=== PATIENT | female | born 1945 | race American Indian/Alaskan Native ===

== ENCOUNTER 2019-04-09 12:06 | Emergency (ER) | payer MEDICARE ==
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
[2019-04-09 12:52] LABS: Basophils % (Auto) 0.6 % (0.0-1.8); Eosinophils % (Auto) 0.1 % (0.0-4.3); Hematocrit 37.9 % (30.3-42.9); Hemoglobin 12.8 gm/dl (10.1-14.3); Lymphocytes # (Auto) 1.7 K/mm3 (1.2-5.4); Lymphocytes % (Auto) 23.2 % (13.4-35.0); Mean Corpuscular HGB Conc 34 % (30-34); Mean Corpuscular Volume 88 fl (79-97); Monocytes # (Auto) 0.6 K/mm3 (0.0-0.8); Monocytes % (Auto) 7.8 % (0.0-7.3); Red Blood Count 4.32 M/mm3 (3.65-5.03); Red Cell Distribution Width 14.6 % (13.2-15.2)
[2019-04-09 12:56] LABS: Platelet Count 126 K/mm3 (140-440)
[2019-04-09 13:20] LABS: Albumin 3.8 g/dL (3.9-5); Calcium 9.9 mg/dL (8.4-10.2)
[2019-04-09 13:27] LABS: Free T4 (Free Thyroxine) 1.3 ng/dL (0.76-1.46)
[2019-04-09 14:28] LABS: Bilirubin,Urine NEG (Negative); Blood,Urine SM (Negative); Color,Urine Yellow (Yellow); Hyaline Casts,Urine 1 /LPF; Mucus,Urine FEW /HPF; Urobilinogen,Urine < 2.0 mg/dL (<2.0)
[2019-04-09 14:44] LABS: Amphetamine Screen,Urine PRESUMPTIVE NEGATIVE; Benzodiazepines Screen,Urine PRESUMPTIVE NEGATIVE; Cannabinoid Screen,Urine PRESUMPTIVE NEGATIVE; Cocaine Screen,Urine PRESUMPTIVE NEGATIVE; Methadone Screen,Urine PRESUMPTIVE NEGATIVE; Opiate Screen,Urine PRESUMPTIVE NEGATIVE
[2019-04-09] MEDS ORDERED: APRESOLINE PO ONE (19:18)
[2019-04-09] MEDS ORDERED: APRESOLINE PO SCH (20:00)
[2019-04-09] MEDS ORDERED: CATAPRES PO SCH (20:00)
[2019-04-09 22:00] VITALS: BP 136/78
[2019-04-09] MEDS ORDERED: ARICEPT PO SCH (22:00)
[2019-04-09] MEDS ORDERED: SINGULAIR PO SCH (22:00)
[2019-04-10] MEDS ORDERED: GLUCOTROL PO SCH (08:00)
[2019-04-10] MEDS ORDERED: GLUCOPHAGE PO SCH (08:00)
[2019-04-10] MEDS ORDERED: PROCARDIA XL PO SCH (10:00)
[2019-04-10] MEDS ORDERED: LASIX PO SCH (10:00)
[2019-04-10] MEDS ORDERED: KLOR-CON 8 PO SCH (10:00)
== END 2019-04-09 21:59 ==
LOC: ED 12:06
DX: F23 Brief psychotic disorder (principal); F03.90 Unspecified dementia, unspecified severity, without behavioral disturbance, psychotic disturbance, mood disturbance, and anxiety; I10 Essential (primary) hypertension; E11.9 Type 2 diabetes mellitus without complications; Z79.899 Other long term (current) drug therapy; Z88.8 Allergy status to other drugs, medicaments and biological substances
CPT/HCPCS: 36415; 80053; 80307; 80320; 81001; 82140; 82962; 83735; 84439; 84443; 85025; G0480

== ENCOUNTER 2019-04-09 21:36 | Inpatient (IN) | payer MEDICARE ==
[2019-04-10 00:13] LABS: Basophils # (Auto) 0.1 K/mm3 (0.0-0.1); Basophils % (Auto) 0.8 % (0.0-1.8); Eosinophils # (Auto) 0.1 K/mm3 (0.0-0.4); Eosinophils % (Auto) 1.2 % (0.0-4.3); Hematocrit 40.7 % (30.3-42.9); Hemoglobin 13.3 gm/dl (10.1-14.3); Lymphocytes # (Auto) 2.7 K/mm3 (1.2-5.4); Lymphocytes % (Auto) 39.3 % (13.4-35.0); Mean Corpuscular HGB Conc 33 % (30-34); Mean Corpuscular Volume 89 fl (79-97); Monocytes # (Auto) 0.4 K/mm3 (0.0-0.8); Monocytes % (Auto) 6.6 % (0.0-7.3); Red Blood Count 4.57 M/mm3 (3.65-5.03); Red Cell Distribution Width 14.7 % (13.2-15.2)
[2019-04-10] MEDS: ARICEPT PO SCH ×2 (00:16→21:01)
[2019-04-10 00:22] LABS: Platelet Count 122 K/mm3 (140-440)
[2019-04-10 01:08] LABS: BUN/Creatinine Ratio 17; Blood Urea Nitrogen 17 mg/dL (7-17); Calcium 9.7 mg/dL (8.4-10.2); Hemolysis Index 2
[2019-04-10 01:38] LABS: Alanine Aminotransferase 21 units/L (7-56); Albumin 3.7 g/dL (3.9-5)
[2019-04-10] MEDS: APRESOLINE PO SCH ×3 (05:47→21:02)
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
[2019-04-10] MEDS ORDERED: CATAPRES PO SCH (08:00)
[2019-04-10] MEDS ORDERED: NON-FORMULARY (Hydralazine Hcl [Hydralazine Hcl] 50 MG) PO SCH (08:00)
[2019-04-10] MEDS: GLUCOPHAGE PO SCH ×2 (08:56→17:28)
[2019-04-10] MEDS: CATAPRES PO SCH ×3 (08:58→21:01)
[2019-04-10] MEDS: GLUCOTROL PO SCH (08:59)
[2019-04-10] MEDS: KLOR-CON 8 PO SCH (09:00)
[2019-04-10] MEDS: PROCARDIA XL PO SCH (09:00)
[2019-04-10] MEDS: LASIX PO SCH (09:00)
[2019-04-10] MEDS ORDERED: NON-FORMULARY (Metformin Hcl [Metformin] 1,000 MG) PO SCH (10:00)
[2019-04-10] MEDS ORDERED: PROCARDIA XL PO SCH (10:00)
[2019-04-10] MEDS ORDERED: LASIX PO SCH (10:00)
[2019-04-10] MEDS ORDERED: KLOR-CON 8 PO SCH (10:00)
[2019-04-10] MEDS ORDERED: GLUCOTROL PO SCH (10:00)
[2019-04-10 10:51] LABS: Chol/HDL Ratio 3.2 %
--- NOTE | 2019-04-10 11:20 | Consultation ---
History of Present Illness - Reason for Consult Consult date: 04/10/19 medical Mx/clearance - History of Present Illness The patient is a 73-year-old retired [employer] with history of dementia, diabetes and hypertension who presented with history of memory decline, paranoia and aggression towards her . Patient is alert, calm and very pleasant during the encounter. She reports good mood, sleep and appetite. She denies AVH/Paranoia/SI/HI. Hospitalist service consulted for further evaluation and management. Past History Past Medical History: diabetes, hypertension Past Surgical History: Other (unable to recall) Social history: (lives with . Finished high school, retired, no childhood abuse, no legal problems and no access to guns) Family history: hypertension Medications and Allergies Allergies Allergy/AdvReac Type Severity Reaction Status Date / Time KARYNA Inhibitors Allergy Unknown Verified 04/09/19 19:31 Home Medications Medication Instructions Recorded Confirmed Last Taken Type Donepezil [Aricept] 5 mg PO QHS 04/09/19 04/10/19 04/09/19 21:58 History Donepezil [Aricept] 5 mg PO QHS 04/09/19 04/10/19 04/09/19 21:58 History Furosemide [Lasix TAB] 20 mg PO DAILY 04/09/19 04/10/19 04/08/19 History Hydralazine HCl 50 mg PO TID 04/09/19 04/10/19 04/09/19 19:31 History 50 Metformin HCl [metFORMIN] 1,000 mg PO BID 04/09/19 04/10/19 1 Day Ago History ~04/08/19 Montelukast Sodium 10 mg PO QPM 04/09/19 04/10/19 04/09/19 21:58 History 10 NIFEdipine [Nifedipine ER] 60 mg PO DAILY 04/09/19 04/10/19 1 Day Ago History ~04/08/19 Potassium Chloride [Klor-Con 8] 8 meq PO DAILY 04/09/19 04/10/19 04/08/19 History cloNIDine [Catapres] 0.2 mg PO TID 04/09/19 04/10/19 04/09/19 19:32 History 0.2 glipiZIDE [Glucotrol] 10 mg PO DAILY 07/27/19 07/28/19 07/26/19 History Active Meds: Active Medications Clonidine HCl (Catapres) 0.2 mg PO TID [facility] Last Admin: 04/10/19 08:58 Dose: 0.2 mg Documented by: Donepezil HCl (Aricept) 5 mg PO QHS [facility] Last Admin: 04/10/19 00:16 Dose: Not Given Documented by: Donepezil HCl (Aricept) 5 mg PO QHS [facility] Furosemide (Lasix) 20 mg PO QDAY [facility] Last Admin: 04/10/19 09:00 Dose: 20 mg Documented by: Glipizide (Glucotrol) 10 mg PO QDDIAB [facility] Last Admin: 04/10/19 08:59 Dose: 10 mg Documented by: Hydralazine HCl (Apresoline) 50 mg PO Q8HR [facility] Last Admin: 04/10/19 05:47 Dose: 50 mg Documented by: Metformin HCl (Glucophage) 1,000 mg PO BIDDIAB [facility] Last Admin: 04/10/19 08:56 Dose: 1,000 mg Documented by: Montelukast Sodium (Singulair) 10 mg PO QPM [facility] Nifedipine (Procardia Xl) 60 mg PO QDAY [facility] Last Admin: 04/10/19 09:00 Dose: 60 mg Documented by: Olanzapine (Zyprexa) 5 mg PO Q6H PRN PRN Reason: Agitation Potassium Chloride (Klor-Con 8) 8 meq PO QDAY [facility] Last Admin: 04/10/19 09:00 Dose: 8 meq Documented by: Review of Systems Constitutional: no weight loss, no fever Ears, nose, mouth and throat: no ear discharge, no decreased hearing, no sinus pressure, no bleeding gums Breasts: deferred Cardiovascular: no chest pain, no orthopnea Respiratory: no shortness of breath Gastrointestinal: no abdominal pain, no nausea, no vomiting Musculoskeletal: no neck stiffness, no neck pain Integumentary: no rash Neurological: no paralysis, no weakness Psychiatric: paranoia, no suicidal ideation Endocrine: no cold intolerance, no heat intolerance Hematologic/Lymphatic: no easy bruising, no easy bleeding Allergic/Immunologic: no urticaria Exam - Constitutional Vitals: Temp Pulse Resp BP Pulse Ox 97.3 F L 87 19 141/88 97 04/10/19 08:13 04/10/19 08:58 04/10/19 08:13 04/10/19 08:58 04/10/19 08:13 General appearance: Present: no acute distress, well-nourished - EENT Eyes: Present: PERRL ENT: hearing intact, clear oral mucosa - Neck Neck: Present: supple, normal ROM - Respiratory Respiratory effort: normal Respiratory: bilateral: CTA - Cardiovascular Heart Sounds: Present: S1 & S2. Absent: rub, click - Extremities Extremities: pulses symmetrical, No edema Peripheral Pulses: within normal limits - Abdominal General gastrointestinal: Present: soft, non-tender, non-distended, normal bowel sounds - Integumentary Integumentary: Present: clear, warm, dry - Musculoskeletal Musculoskeletal: gait normal, strength equal bilaterally - Psychiatric Psychiatric: appropriate mood/affect - Neurologic Neurologic: CNII-XII intact, moves all extremities Results - Labs CBC & Chem 7: 04/09/19 23:50 04/09/19 23:50 Labs: Abnormal lab results 04/09/19 04/09/19 04/09/19 Range/Units 23:50 23:50 23:50 Plt Count 122 L (140-440) K/mm3 Lymph % (Auto) 39.3 H (13.4-35.0) % Potassium 3.4 L (3.6-5.0) mmol/L Hemoglobin A1c 6.2 H (4-6) % Albumin 3.7 L (3.9-5) g/dL Cholesterol (50-199) mg/dL LDL Cholesterol Direct (50-130) mg/dL HDL Cholesterol (40-59) mg/dL 04/10/19 Range/Units 09:36 Plt Count (140-440) K/mm3 Lymph % (Auto) (13.4-35.0) % Potassium (3.6-5.0) mmol/L Hemoglobin A1c (4-6) % Albumin (3.9-5) g/dL Cholesterol 218 H (50-199) mg/dL LDL Cholesterol Direct 141 H (50-130) mg/dL HDL Cholesterol 68 H (40-59) mg/dL Assessment and Plan Acute psychosis Schizoaffective disorder - Mx per primary HTN, HLD DM type 2 - resume home meds, monitor BP, monitor BG with daily accucheck - Call us back with any question or concern
[2019-04-10] MEDS: SINGULAIR PO SCH (17:28)
[2019-04-10] MEDS ORDERED: SINGULAIR PO SCH (18:00)
[2019-04-10 18:55] LABS: Bacteria,Urine 2+ /HPF (Negative); Bilirubin,Urine NEG (Negative); Blood,Urine NEG (Negative); Color,Urine Amber (Yellow); Mucus,Urine FEW /HPF; Protein,Urine <15 mg/dL mg/dL (Negative); Urobilinogen,Urine < 2.0 mg/dL (<2.0)
[2019-04-10] MEDS ORDERED: ARICEPT PO SCH (22:00)
[2019-04-11] MEDS: APRESOLINE PO SCH ×3 (05:36→23:11)
--- NOTE | 2019-04-11 08:54 | Progress Note ---
Subjective Date of service: 04/11/19 Principal diagnosis: Major Neurocognitive disorder with behavioral disturbance Subjective Comment: Patient is doing good. She has no complaints. She sleeps and eats well. She is pleasantly confused at times. No SI/HI/AVH. Objective - Criteria for Continued Treatment Criteria for Continued Treatment: Improving Level of Functioning, Stablizing Level of Functioning, Improving Emotional/Socia - Mental Status Mental Status: Alert - Objective Observation Participation Level: Full Assessment and Plan - Patient Problems (1) Major neurocognitive disorder due to Alzheimer's disease, with behavioral disturbance Current Visit: Yes Status: Acute Plan to address problem: Patient will be admitted for inpatient psychiatric evaluation, medication adjustment and close monitoring The patient's behavior, mood, sleep and appetite will be closely monitored. Patient will be enrolled in individual and group therapeutic sessions and encouraged to attend. Patient will be provided with a safe and structured environment. Patient's physical health needs will be addressed by the Hospitalist. Social Assessment will be completed and the Buncher Machine will work with patient and family to ensure a suitable and safe disposition Medication adjustment will be made as clinically indicated. The patient agreed on the treatment plan, understood the risk, benefit, alternative treatment, potential consequence of no treatment, and gave informed consent.
[2019-04-11] MEDS: GLUCOTROL PO SCH (10:43)
[2019-04-11] MEDS: LASIX PO SCH (10:44)
[2019-04-11] MEDS: KLOR-CON 8 PO SCH (10:44)
[2019-04-11] MEDS: GLUCOPHAGE PO SCH ×3 (10:44→17:00)
[2019-04-11] MEDS: CATAPRES PO SCH ×3 (10:45→20:32)
[2019-04-11] MEDS: PROCARDIA XL PO SCH (10:46)
[2019-04-11] MEDS: SINGULAIR PO SCH (18:47)
[2019-04-11] MEDS: ARICEPT PO SCH (21:41)
[2019-04-12] MEDS: APRESOLINE PO SCH ×3 (06:01→21:47)
--- NOTE | 2019-04-12 08:34 | Progress Note ---
Subjective Date of service: 04/12/19 Principal diagnosis: Major Neurocognitive disorder with behavioral disturbance Subjective Comment: Patient is doing good. She has no complaints. She sleeps and eats well. She is pleasantly confused at times. She knows the year but not the month or date. No SI/HI/AVH. Will discharge in am tomorrow if she continues to do well. Objective - Criteria for Continued Treatment Criteria for Continued Treatment: Stablizing Level of Functioning - Mental Status Mental Status: Alert - Objective Observation Participation Level: Full Assessment and Plan - Patient Problems (1) Major neurocognitive disorder due to Alzheimer's disease, with behavioral disturbance Current Visit: Yes Status: Acute Plan to address problem: Patient will be admitted for inpatient psychiatric evaluation, medication adjustment and close monitoring The patient's behavior, mood, sleep and appetite will be closely monitored. Patient will be enrolled in individual and group therapeutic sessions and encouraged to attend. Patient will be provided with a safe and structured environment. Patient's physical health needs will be addressed by the Hospitalist. Social Assessment will be completed and the Assistant Executive Housekeeper will work with patient and family to ensure a suitable and safe disposition Medication adjustment will be made as clinically indicated. Will increase Donepezil and start Nameda for dementia The patient agreed on the treatment plan, understood the risk, benefit, alternative treatment, potential consequence of no treatment, and gave informed consent.
[2019-04-12] MEDS: LASIX PO SCH (10:09)
[2019-04-12] MEDS: GLUCOTROL PO SCH (10:10)
[2019-04-12] MEDS: KLOR-CON 8 PO SCH (10:10)
[2019-04-12] MEDS: GLUCOPHAGE PO SCH ×2 (10:10→17:51)
[2019-04-12] MEDS: PROCARDIA XL PO SCH (10:11)
[2019-04-12] MEDS: NAMENDA PO SCH ×2 (10:12→21:47)
[2019-04-12] MEDS: CATAPRES PO SCH ×3 (10:12→21:48)
[2019-04-12] MEDS: SINGULAIR PO SCH (17:51)
[2019-04-12] MEDS: ARICEPT PO SCH (21:48)
[2019-04-13] MEDS: APRESOLINE PO SCH (06:00)
[2019-04-13] MEDS: GLUCOTROL PO SCH (08:26)
[2019-04-13] MEDS: GLUCOPHAGE PO SCH ×2 (08:27→17:00)
--- NOTE | 2019-04-13 08:57 | Progress Note ---
Subjective Date of service: 04/13/19 Principal diagnosis: Major Neurocognitive disorder with behavioral disturbance Subjective Comment: Patient is delusional, accusing step-daughter of stealing her collection of coins, still very upset about this. Spoke with , who indicates that he has repeatedly showed her the collection of coins. She sleeps and eats well. She is confused. She knows the year but not the month or date. No SI/HI/AVH. Will start Risperidone for delusions and monitor closely. Objective - Criteria for Continued Treatment Criteria for Continued Treatment: Improving Level of Functioning, Stablizing Level of Functioning, Improving Emotional/Socia - Mental Status Mental Status: Alert - Objective Observation Participation Level: Full Assessment and Plan - Patient Problems (1) Major neurocognitive disorder due to Alzheimer's disease, with behavioral disturbance Current Visit: Yes Status: Acute Plan to address problem: Patient will be admitted for inpatient psychiatric evaluation, medication adjustment and close monitoring The patient's behavior, mood, sleep and appetite will be closely monitored. Patient will be enrolled in individual and group therapeutic sessions and encouraged to attend. Patient will be provided with a safe and structured environment. Patient's physical health needs will be addressed by the Hospitalist. Social Assessment will be completed and the Repairer Helper will work with patient and family to ensure a suitable and safe disposition Medication adjustment will be made as clinically indicated. Will continue Donepezil and start Nameda for dementia Will start Risperidone 0.5mg bid The patient agreed on the treatment plan, understood the risk, benefit, alternative treatment, potential consequence of no treatment, and gave informed consent.
[2019-04-13] MEDS: CATAPRES PO SCH ×3 (09:00→20:14)
[2019-04-13] MEDS: RisperDAL PO SCH ×2 (09:54→21:10)
[2019-04-13] MEDS: NAMENDA PO SCH ×2 (09:54→21:10)
[2019-04-13] MEDS: LASIX PO SCH (09:55)
[2019-04-13] MEDS: PROCARDIA XL PO SCH (09:56)
[2019-04-13] MEDS: KLOR-CON 8 PO SCH (09:56)
--- NOTE | 2019-04-13 10:15 | Progress Note ---
Assessment and Plan Assessment and plan: The patient is a 73-year-old retired [employer] with history of dementia, diabetes and hypertension who presented with history of memory decline, paranoia and aggression towards her . Patient is alert, calm and very pleasant during the encounter. She reports good mood, sleep and appetite. She denies AVH/ Paranoia/SI/HI. Hospitalist service consulted for further evaluation and management. Schizoaffective disorder: per Haley-psych Hypotension with history of Hypertension: stop hydralazine, continue lasix, procardia Hypoglycemia and DM type 2: d/c glipizide, add accucheck and sliding scale HLD History Interval history: I was asked to re-evaluate Ms. Mary by Cyndi, Hospitalist Scientific Programmer Analyst, reason unclear but patient had borderline low bp and low BG yesterday. Hospitalist Physical - Constitutional Vitals: Temp Pulse Resp BP Pulse Ox 97.6 F 89 18 140/73 98 04/12/19 19:30 04/13/19 09:00 04/12/19 19:30 04/13/19 09:00 04/12/19 19:31 General appearance: Present: no acute distress, well-nourished - EENT ENT: hearing intact - Neck Neck: Present: supple - Respiratory Respiratory effort: normal Respiratory: bilateral: CTA - Cardiovascular Rhythm: regular Heart Sounds: Present: S1 & S2 Results - Labs CBC & Chem 7: 04/09/19 23:50 04/09/19 23:50 Labs: Laboratory Last Values WBC 6.8 K/mm3 (4.5-11.0) 04/09/19 23:50 RBC 4.57 M/mm3 (3.65-5.03) 04/09/19 23:50 Hgb 13.3 gm/dl (10.1-14.3) 04/09/19 23:50 Hct 40.7 % (30.3-42.9) 04/09/19 23:50 MCV 89 fl (79-97) 04/09/19 23:50 MCH 29 pg (28-32) 04/09/19 23:50 MCHC 33 % (30-34) 04/09/19 23:50 RDW 14.7 % (13.2-15.2) 04/09/19 23:50 Plt Count 122 K/mm3 (140-440) L 04/09/19 23:50 Lymph % (Auto) 39.3 % (13.4-35.0) H 04/09/19 23:50 [place] % (Auto) 6.6 % (0.0-7.3) 04/09/19 23:50 Eos % (Auto) 1.2 % (0.0-4.3) 04/09/19 23:50 Baso % (Auto) 0.8 % (0.0-1.8) 04/09/19 23:50 Lymph # 2.7 K/mm3 (1.2-5.4) 04/09/19 23:50 [place] # 0.4 K/mm3 (0.0-0.8) 04/09/19 23:50 Eos # 0.1 K/mm3 (0.0-0.4) 04/09/19 23:50 Baso # 0.1 K/mm3 (0.0-0.1) 04/09/19 23:50 Seg Neutrophils % 52.1 % (40.0-70.0) 04/09/19 23:50 Seg Neutrophils # 3.6 K/mm3 (1.8-7.7) 04/09/19 23:50 Sodium 141 mmol/L (137-145) 04/09/19 23:50 Potassium 3.4 mmol/L (3.6-5.0) L 04/09/19 23:50 Chloride 100.1 mmol/L (98-107) 04/09/19 23:50 Carbon Dioxide 29 mmol/L (22-30) 04/09/19 23:50 15 mmol/L 04/09/19 23:50 BUN 17 mg/dL (7-17) 04/09/19 23:50 1.0 mg/dL (0.7-1.2) 04/09/19 23:50 Estimated GFR > 60 ml/min 04/09/19 23:50 17 % 04/09/19 23:50 Glucose 87 mg/dL (65-100) 04/09/19 23:50 POC Glucose 177 (70-105) H 04/13/19 08:40 6.2 % (4-6) H 04/09/19 23:50 Calcium 9.7 mg/dL (8.4-10.2) 04/09/19 23:50 0.60 mg/dL (0.1-1.2) 04/09/19 23:50 AST 35 units/L (5-40) 04/09/19 23:50 ALT 21 units/L (7-56) 04/09/19 23:50 99 units/L (35-129) 04/09/19 23:50 7.9 g/dL (6.3-8.2) 04/09/19 23:50 3.7 g/dL (3.9-5) L 04/09/19 23:50 0.9 % 04/09/19 23:50 Triglycerides 72 mg/dL (2-149) 04/10/19 09:36 Cholesterol 218 mg/dL (50-199) H 04/10/19 09:36 141 mg/dL (50-130) H 04/10/19 09:36 68 mg/dL (40-59) H 04/10/19 09:36 3.20 % 04/10/19 09:36 TSH 3.260 mlU/mL (0.270-4.200) 04/09/19 23:50 Jeni (Yellow) 04/10/19 18:40 Cloudy (Clear) 04/10/19 18:40 5.0 (5.0-7.0) 04/10/19 18:40 Ur Specific Calcium 1.016 (1.003-1.030) 04/10/19 18:40 <15 mg/dl mg/dL (Negative) 04/10/19 18:40 Neg mg/dL (Negative) 04/10/19 18:40 Tr mg/dL (Negative) 04/10/19 18:40 Neg (Negative) 04/10/19 18:40 Neg (Negative) 04/10/19 18:40 Neg (Negative) 04/10/19 18:40 < 2.0 mg/dL (<2.0) 04/10/19 18:40 Ur Leukocyte Esterase Sm (Negative) 04/10/19 18:40 8.0 /HPF (0.0-6.0) H 04/10/19 18:40 5.0 /HPF (0.0-6.0) 04/10/19 18:40 U Epithel Cells (Auto) 29.0 /HPF (0-13.0) H 04/10/19 18:40 2+ /HPF (Negative) 04/10/19 18:40 Few /HPF 04/10/19 18:40 Active Medications - Current Medications Current Medications: Generic Name Dose Route Start Last Admin Trade Name Marco A PRN Reason Stop Dose Admin Clonidine HCl 0.2 mg 04/10/19 08:00 04/13/19 09:00 Catapres PO 0.2 mg TID NEAL Administration Donepezil HCl 10 mg 04/11/19 22:00 04/12/19 21:48 Aricept PO 10 mg QHS NEAL Administration Furosemide 20 mg 04/10/19 10:00 04/13/19 09:55 Lasix PO 20 mg QDAY NEAL Administration Hydralazine HCl 50 mg 04/10/19 06:00 04/13/19 06:00 Apresoline PO 50 mg Q8HR NEAL Administration Memantine 10 mg 04/12/19 10:00 04/13/19 09:54 Namenda PO 10 mg Q12HR [facility]AL Administration Metformin HCl 500 mg 04/11/19 09:00 04/13/19 08:27 Glucophage PO 500 mg BIDDIAB NEAL Administration Montelukast Sodium 10 mg 04/10/19 18:00 04/12/19 17:51 Singulair PO 10 mg QPM [facility]AL Administration Nifedipine 60 mg 04/10/19 10:00 04/13/19 09:56 Procardia Xl PO 60 mg QDAY [facility]AL Administration Potassium Chloride 8 meq 04/10/19 10:00 04/13/19 09:56 Klor-Con 8 PO 8 meq QDAY [facility]AL Administration Risperidone 0.5 mg 04/13/19 10:00 04/13/19 09:54 Risperdal PO 0.5 mg BID NELA Administration
[2019-04-13] MEDS ORDERED: D50W (25GM) Syringe IV PRN (11:00)
[2019-04-13] MEDS: HumaLOG SUB-Q SCH ×2 (12:33→17:34)
[2019-04-13] MEDS: SINGULAIR PO SCH (18:44)
[2019-04-13] MEDS: ARICEPT PO SCH (21:10)
[2019-04-14] MEDS: CATAPRES PO SCH ×3 (08:39→21:39)
[2019-04-14] MEDS: GLUCOPHAGE PO SCH ×2 (08:40→17:38)
[2019-04-14] MEDS: HumaLOG SUB-Q SCH ×2 (08:42→16:33)
[2019-04-14] MEDS: LASIX PO SCH (09:13)
[2019-04-14] MEDS: RisperDAL PO SCH ×2 (09:17→21:40)
[2019-04-14] MEDS: NAMENDA PO SCH ×2 (09:17→21:40)
[2019-04-14] MEDS: PROCARDIA XL PO SCH (09:18)
[2019-04-14] MEDS: KLOR-CON 8 PO SCH (09:18)
--- NOTE | 2019-04-14 09:26 | Progress Note ---
Subjective Date of service: 04/14/19 Principal diagnosis: Major Neurocognitive disorder with behavioral disturbance Subjective Comment: Patient is calm and pleasantly confused No SI/HI/AVH. She tolerated the Risperidone that was started yesterday. Objective - Criteria for Continued Treatment Criteria for Continued Treatment: Improving Level of Functioning, Stablizing Level of Functioning, Improving Emotional/Socia - Mental Status Mental Status: Alert - Objective Observation Participation Level: Full Assessment and Plan - Patient Problems (1) Major neurocognitive disorder due to Alzheimer's disease, with behavioral disturbance Current Visit: Yes Status: Acute Plan to address problem: Patient will be admitted for inpatient psychiatric evaluation, medication adjustment and close monitoring The patient's behavior, mood, sleep and appetite will be closely monitored. Patient will be enrolled in individual and group therapeutic sessions and encouraged to attend. Patient will be provided with a safe and structured environment. Patient's physical health needs will be addressed by the Hospitalist. Social Assessment will be completed and the Armature Rewinder will work with patient and family to ensure a suitable and safe disposition Medication adjustment will be made as clinically indicated. Will continue Donepezil and Nameda for dementia Will continue Risperidone 0.5mg bid Will plan to discharge her in am tomorrow The patient agreed on the treatment plan, understood the risk, benefit, alternative treatment, potential consequence of no treatment, and gave informed consent.
[2019-04-14] MEDS: SINGULAIR PO SCH (17:38)
[2019-04-14] MEDS: ARICEPT PO SCH (21:39)
[2019-04-15] MEDS: HumaLOG SUB-Q SCH (07:58)
--- NOTE | 2019-04-15 09:29 | Discharge Summary ---
Providers - Providers Date of Admission: 04/09/19 22:05 Date of discharge: 04/15/19 Attending physician: KRISTEN HARTMANN MD 04/09/19 22:05 Consult to Physician [CONS] Routine Comment: Consulting Provider: JUVENAL LUO Physician Instructions: Reason For Exam: Medical/History and Physical Primary care physician: EMA CHOW Hospitalization Reason for admission: memory decline, paranoia and aggression towards her . Allergies/Adverse Reactions: Allergies KARYNA Inhibitors Allergy (Verified 04/09/19 19:31) Unknown Vital Signs: Last Vital Signs Temp 98.3 F 04/14/19 19:24 Pulse 67 04/14/19 21:39 Resp 16 04/14/19 19:24 BP 138/80 04/14/19 21:39 Pulse Ox 100 04/14/19 19:24 Last Lab: Laboratory Last Values WBC 6.8 K/mm3 (4.5-11.0) 04/09/19 23:50 RBC 4.57 M/mm3 (3.65-5.03) 04/09/19 23:50 Hgb 13.3 gm/dl (10.1-14.3) 04/09/19 23:50 Hct 40.7 % (30.3-42.9) 04/09/19 23:50 MCV 89 fl (79-97) 04/09/19 23:50 MCH 29 pg (28-32) 04/09/19 23:50 MCHC 33 % (30-34) 04/09/19 23:50 RDW 14.7 % (13.2-15.2) 04/09/19 23:50 Plt Count 122 K/mm3 (140-440) L 04/09/19 23:50 Lymph % (Auto) 39.3 % (13.4-35.0) H 04/09/19 23:50 [place] % (Auto) 6.6 % (0.0-7.3) 04/09/19 23:50 Eos % (Auto) 1.2 % (0.0-4.3) 04/09/19 23:50 Baso % (Auto) 0.8 % (0.0-1.8) 04/09/19 23:50 Lymph # 2.7 K/mm3 (1.2-5.4) 04/09/19 23:50 [place] # 0.4 K/mm3 (0.0-0.8) 04/09/19 23:50 Eos # 0.1 K/mm3 (0.0-0.4) 04/09/19 23:50 Baso # 0.1 K/mm3 (0.0-0.1) 04/09/19 23:50 Seg Neutrophils % 52.1 % (40.0-70.0) 04/09/19 23:50 Seg Neutrophils # 3.6 K/mm3 (1.8-7.7) 04/09/19 23:50 Sodium 141 mmol/L (137-145) 04/09/19 23:50 Potassium 3.4 mmol/L (3.6-5.0) L 04/09/19 23:50 Chloride 100.1 mmol/L (98-107) 04/09/19 23:50 Carbon Dioxide 29 mmol/L (22-30) 04/09/19 23:50 15 mmol/L 04/09/19 23:50 BUN 17 mg/dL (7-17) 04/09/19 23:50 1.0 mg/dL (0.7-1.2) 04/09/19 23:50 Estimated GFR > 60 ml/min 04/09/19 23:50 17 % 04/09/19 23:50 Glucose 87 mg/dL (65-100) 04/09/19 23:50 POC Glucose 103 (70-105) 04/15/19 08:05 6.2 % (4-6) H 04/09/19 23:50 Calcium 9.7 mg/dL (8.4-10.2) 04/09/19 23:50 0.60 mg/dL (0.1-1.2) 04/09/19 23:50 AST 35 units/L (5-40) 04/09/19 23:50 ALT 21 units/L (7-56) 04/09/19 23:50 99 units/L (35-129) 04/09/19 23:50 7.9 g/dL (6.3-8.2) 04/09/19 23:50 3.7 g/dL (3.9-5) L 04/09/19 23:50 0.9 % 04/09/19 23:50 Triglycerides 72 mg/dL (2-149) 04/10/19 09:36 Cholesterol 218 mg/dL (50-199) H 04/10/19 09:36 141 mg/dL (50-130) H 04/10/19 09:36 68 mg/dL (40-59) H 04/10/19 09:36 3.20 % 04/10/19 09:36 TSH 3.260 mlU/mL (0.270-4.200) 04/09/19 23:50 Jeni (Yellow) 04/10/19 18:40 Cloudy (Clear) 04/10/19 18:40 5.0 (5.0-7.0) 04/10/19 18:40 Ur Specific [place] 1.016 (1.003-1.030) 04/10/19 18:40 <15 mg/dl mg/dL (Negative) 04/10/19 18:40 Neg mg/dL (Negative) 04/10/19 18:40 Tr mg/dL (Negative) 04/10/19 18:40 Neg (Negative) 04/10/19 18:40 Neg (Negative) 04/10/19 18:40 Neg (Negative) 04/10/19 18:40 < 2.0 mg/dL (<2.0) 04/10/19 18:40 Ur Leukocyte Esterase Sm (Negative) 04/10/19 18:40 8.0 /HPF (0.0-6.0) H 04/10/19 18:40 5.0 /HPF (0.0-6.0) 04/10/19 18:40 U Epithel Cells (Auto) 29.0 /HPF (0-13.0) H 04/10/19 18:40 2+ /HPF (Negative) 04/10/19 18:40 Few /HPF 04/10/19 18:40 - Discharge Diagnoses (1) Major neurocognitive disorder due to Alzheimer's disease, with behavioral disturbance Status: Acute Core Measure Documentation - Palliative Care Palliative Care/ Comfort Measures: Not Applicable Exam - Constitutional Vitals: Temp Pulse Resp BP Pulse Ox 98.3 F 67 16 138/80 100 04/14/19 19:24 04/14/19 21:39 04/14/19 19:24 04/14/19 21:39 04/14/19 19:24 Plan Follow up with: EMA CHOW [Primary Care Provider] - 7 Days Prescriptions: Donepezil [Aricept] 10 mg PO QHS #60 tablet metFORMIN [Glucophage] 500 mg PO BIDDIAB #60 tablet Memantine [Namenda] 10 mg PO Q12HR #60 tablet risperiDONE [RisperDAL] 0.5 mg PO BID #60 tablet
[2019-04-15] MEDS: RisperDAL PO SCH (09:50)
[2019-04-15] MEDS: GLUCOPHAGE PO SCH (09:50)
[2019-04-15] MEDS: PROCARDIA XL PO SCH (09:51)
[2019-04-15] MEDS: LASIX PO SCH (09:51)
[2019-04-15] MEDS: KLOR-CON 8 PO SCH (09:52)
[2019-04-15] MEDS: CATAPRES PO SCH ×2 (09:53→13:51)
[2019-04-15] MEDS: NAMENDA PO SCH (09:54)
[2019-04-15 09:55] VITALS: BP 135/67
== END 2019-04-15 15:30 | disposition home or self-care (01) | DRG 57 ==
LOC: 3A 21:36 → UNDOADMIN 21:36 → 5A 22:05
PROVIDERS: ADMIT Psychiatry & Neurology Psychiatry; ATTEND Psychiatry & Neurology Psychiatry
DX: G30.8 Other Alzheimer's disease (principal); F02.81 Dementia in other diseases classified elsewhere, unspecified severity, with behavioral disturbance; E11.9 Type 2 diabetes mellitus without complications; I10 Essential (primary) hypertension; E78.5 Hyperlipidemia, unspecified; Z88.8 Allergy status to other drugs, medicaments and biological substances; Z79.84 Long term (current) use of oral hypoglycemic drugs
CPT/HCPCS: 36415; 80053; 80061; 80307; 80320; 81001; 82140; 82962; 83036; 83735; 84439; 84443; 85025; G0378; G0480

== ENCOUNTER 2020-04-03 19:04 | Emergency (ER) | payer MEDICARE ==
--- NOTE | 2020-04-03 19:33 | Event Note ---
ED Screening Note ED Screening Note: 1013 dementia This initial assessment/diagnostic orders/clinical plan/treatment(s) is/are subject to change based on patients health status, clinical progression and re- assessment by fellow clinical providers in the ED. Further treatment and workup at subsequent clinical providers discretion. Patient/guardian urged not to elope from the ED as their condition may be serious if not clinically assessed and managed. Initial orders include: main ed for workup
[2020-04-03 20:34] LABS: Basophils % (Auto) 0.4 % (0.0-1.8); Eosinophils # (Auto) 0.3 K/mm3 (0.0-0.4); Eosinophils % (Auto) 2.8 % (0.0-4.3); Hematocrit 37.9 % (30.3-42.9); Hemoglobin 12.3 gm/dl (10.1-14.3); Lymphocytes # (Auto) 2.7 K/mm3 (1.2-5.4); Lymphocytes % (Auto) 29.3 % (13.4-35.0); Mean Corpuscular HGB Conc 32 % (30-34); Mean Corpuscular Volume 91 fl (79-97); Monocytes # (Auto) 0.8 K/mm3 (0.0-0.8); Monocytes % (Auto) 9.2 % (0.0-7.3); Red Blood Count 4.19 M/mm3 (3.65-5.03)
[2020-04-03 20:39] LABS: Platelet Count 141 K/mm3 (140-440)
[2020-04-03 20:52] LABS: BUN/Creatinine Ratio 23; Blood Urea Nitrogen 21 mg/dL (7-17); Calcium 9.4 mg/dL (8.4-10.2); Hemolysis Index 6
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
[2020-04-04 00:13] LABS: Bilirubin,Urine NEG (Negative); Blood,Urine NEG (Negative); Color,Urine Yellow (Yellow); Protein,Urine <15 mg/dL mg/dL (Negative); Urobilinogen,Urine < 2.0 mg/dL (<2.0)
[2020-04-04 00:29] LABS: Amphetamine Screen,Urine PRESUMPTIVE NEGATIVE; Benzodiazepines Screen,Urine PRESUMPTIVE NEGATIVE; Cannabinoid Screen,Urine PRESUMPTIVE NEGATIVE; Cocaine Screen,Urine PRESUMPTIVE NEGATIVE; Methadone Screen,Urine PRESUMPTIVE NEGATIVE; Opiate Screen,Urine PRESUMPTIVE NEGATIVE
[2020-04-04] MEDS ORDERED: NITROFURANTOIN MONOHYD/M-CRYST 100 MG CAP PO ONE (01:16)
[2020-04-04 06:34] VITALS: BP 163/90
== END 2020-04-04 08:21 | disposition home or self-care (01) ==
LOC: ED 19:04
DX: N39.0 Urinary tract infection, site not specified (principal); F03.91 Unspecified dementia, unspecified severity, with behavioral disturbance; I10 Essential (primary) hypertension; E11.9 Type 2 diabetes mellitus without complications; M13.88 Other specified arthritis, other site; F31.9 Bipolar disorder, unspecified; Z79.899 Other long term (current) drug therapy; Z88.8 Allergy status to other drugs, medicaments and biological substances
CPT/HCPCS: 36415; 80048; 80307; 80320; 81001; 85025; 87086; G0480